=== PATIENT | female | born 1985 | race African-American/Black ===

== ENCOUNTER 2018-10-03 20:44 | Emergency (ER) | payer OTHER ==
[~2018-10-03] VITALS: Ht 188 cm; Wt 108.0 kg
[~2018-10-03 20:44] MED LIST: FLEXERIL PO; IBUPROFEN 800800 MG PO; PERCOCET 5-3251 EACH PO
[2018-10-03 21:04] LABS: ABSOLUTE NEUTROPHILS 5.6 thou/uL (1.4-8.2); BASOPHILS 0.7 % (0.0-2.0); EOSINOPHILS 1.7 % (0.0-3.0); HEMATOCRIT 42.2 % (37.0-47.0); HEMOGLOBIN 14.6 gm/dL (12.0-15.0); LYMPHOCYTES 34.3 % (24.0-44.0); MCHC 34.6 g/dL (28.0-37.0); MCV 86.5 fL (80.0-100.0); MONOCYTES 4.3 % (1.0-8.0); PLATELET COUNT 261 thou/uL (150-400); RBC 4.87 mil/uL (4.20-5.00); RDW 14.2 % (10.5-14.5); WBC 9.5 thou/uL (4.0-11.0)
[2018-10-03 21:11] LABS: CALCIUM 8.7 mg/dL (8.5-10.1); CREATININE 0.7 mg/dL (0.6-1.0); POTASSIUM 3.3 mmol/L (3.5-5.1)
[2018-10-03 21:17] LABS: ALBUMIN 3.5 g/dL (3.4-5.0); TOTAL BILIRUBIN 0.2 mg/dL (<0.1-1.0); TOTAL PROTEIN 6.2 g/dL (6.4-8.2)
[2018-10-03 21:51] LABS: URINE BILIRUBIN NEGATIVE (Negative); URINE BLOOD NEGATIVE (Negative); URINE CLARITY CLEAR; URINE COLOR YELLOW; URINE GLUCOSE-RANDOM* NEGATIVE (Negative); URINE KETONES NEGATIVE (Negative); URINE LEUKOCYTES-REFLEX NEGATIVE (Negative); URINE NITRITE-REFLEX NEGATIVE (Negative); URINE PROTEIN (DIPSTICK) NEGATIVE (Negative); URINE UROBILINOGEN 0.2 E.U./dl (0.2-1.0)
[2018-10-04] MEDS ORDERED: NORCO 5-325 TA1 EACH PO (00:02)
[2018-10-04 00:16] VITALS: BP 122/74
== END 2018-10-04 00:32 | disposition home or self-care (01) ==
LOC: ER 20:44
PROVIDERS: Nurse Practitioner Family
DX: N83.202 Unspecified ovarian cyst, left side (principal); N80.0 Endometriosis of uterus; Z88.6 Allergy status to analgesic agent

== ENCOUNTER 2019-03-25 08:48 | Emergency (ER) | payer BC ==
[~2019-03-25] VITALS: Ht 188 cm; Wt 106.6 kg
[~2019-03-25 08:48] MED LIST changes: +NORCO 5-325 TA1 EACH PO
[2019-03-25 09:01] VITALS: BP 131/85
[2019-03-25] MEDS ORDERED: TRAMADOL 50 MG50 MG PO (09:03)
[2019-03-25] MEDS ORDERED: FLEXERIL PO (09:03)
[2019-03-25] MEDS ORDERED: NAPROSYN500 MG PO (09:14)
[2019-03-25] MEDS ORDERED: NORFLEX100 MG PO (09:14)
== END 2019-03-25 09:40 | disposition home or self-care (01) ==
LOC: ER 08:48
DX: M43.6 Torticollis (principal); Z88.6 Allergy status to analgesic agent; Z88.8 Allergy status to other drugs, medicaments and biological substances; Z90.12 Acquired absence of left breast and nipple